=== PATIENT | male | born 1945 | race Caucasian/White ===

== ENCOUNTER → 2024-07-12 | Outpatient (CLI) | payer OTHER | END | disposition home or self-care (01) | LOC: RESCLI 11:18 | PROVIDERS: ATTEND Student in an Organized Health Care Education/Training Program | DX: D68.51 Activated protein C resistance (principal); G95.0 Syringomyelia and syringobulbia; I10 Essential (primary) hypertension; R91.1 Solitary pulmonary nodule; Z79.01 Long term (current) use of anticoagulants; Z98.890 Other specified postprocedural states; Z79.899 Other long term (current) drug therapy ==